=== PATIENT | male | born 1970 | race Caucasian/White ===

== ENCOUNTER 2016-09-11 15:42 | Emergency (ER) | payer OTHER ==
[~2016-09-11] VITALS: Ht 172.7 cm; Wt 110.0 kg
[2016-09-11 15:46] VITALS: Ht 172.7 cm; Wt 110.0 kg
[2016-09-11] MEDS ORDERED: ASPIRIN 325 MG TAB PO STA (17:38)
[2016-09-11] MEDS ORDERED: LIDOCAINE/MYLANTA 40 ML BTL PO ONE (18:00)
--- NOTE | 2016-09-11 18:01 | ERD ---
ER Documentation Chief Complaint Date/Time DATE: 09/11/16 TIME: 17:48 Chief Complaint chest pressure and sob x 2 months HPI This 45-year-old male presents for occasional intermittent chest pressure and shortness of breath. He was sent in by Dr. Lopez'carlos and his primary care physician. He states that he smokes marijuana for anxiety but does not smoke tobacco. He does not currently have the chest pain but he does have some epigastric pain. Chest pain is sometimes related to food and he wonders if it might be acid reflux. ROS All systems reviewed and are negative except as per history of present illness. Medications Home Meds Active Scripts Ranitidine Hcl* (Zantac*) 150 Mg Tablet, 150 MG PO BID Y for EPIGASTRIC PAIN, # 30 TAB Prov:SHANE ZAPATA DO 09/11/16 Discontinued Reported Medications [None] No Conflict Check 02/07/11 Allergies Allergies: Coded Allergies: No Known Allergies (Verified Allergy, Unknown, 09/11/16) PMhx/Soc History of Surgery: No (NO MEDICAL HISTORY, NO SURGERY) Hx Alcohol Use: Yes (OCC.) Hx Substance Use: No Hx Tobacco Use: No Physical Exam Vitals Vital Signs Date Time Temp Pulse Resp B/P Pulse Ox O2 Delivery O2 Flow Rate FiO2 09/11/16 17:55 98.0 66 18 145/90 100 Room Air 09/11/16 15:46 97.6 66 18 131/95 98 Physical Exam Const: [] No distress Head: Atraumatic Eyes: Normal Conjunctiva ENT: Normal External Ears, Nose and Mouth. Neck: Full range of motion..~ No meningismus. Resp: Clear to auscultation bilaterally Cardio: Regular rate and rhythm, no murmurs Abd: Soft, non tender, non distended. Normal bowel sounds Skin: No petechiae or rashes Back: No midline or flank tenderness Ext: No cyanosis, or edema Neur: Awake and alert and oriented 3, no focal deficits Psych: Normal Mood and Affect Result Diagram: 09/11/16 1800 09/11/16 1800 Results 24 hrs Laboratory Tests Test 09/11/16 18:00 White Blood Count 7.910^3/ul Red Blood Count 5.1810^6/ul Hemoglobin 15.1g/dl Hematocrit 45.6% Mean Corpuscular Volume 88.0fl Mean Corpuscular Hemoglobin 29.2pg Mean Corpuscular Hemoglobin Concent 33.1g/dl Red Cell Distribution Width 12.4% Platelet Count 87111^3/UL Mean Platelet Volume 11.3fl Neutrophils % 56.4% Lymphocytes % 34.0% Monocytes % 7.1% Eosinophils % 1.5% Basophils % 0.6% Nucleated Red Blood Cells % 0.0/100WBC Neutrophils # 4.510^3/ul Lymphocytes # 2.710^3/ul Monocytes # 0.610^3/ul Eosinophils # 0.110^3/ul Basophils # 0.110^3/ul Nucleated Red Blood Cells # 0.010^3/ul Prothrombin Time 12.5Sec Prothrombin Time Ratio 1.0 INR International Normalized Ratio 0.93 Activated Partial Thromboplast Time 28.0Sec Sodium Level 146mmol/L Potassium Level 3.7mmol/L Chloride Level 103mmol/L Carbon Dioxide Level 26mmol/L Anion Gap 21 Blood Urea Nitrogen 12mg/dl Creatinine 0.81mg/dl Glucose Level 94mg/dl Calcium Level 9.5mg/dl Troponin I < 0.012ng/ml B-Type Natriuretic Peptide 82PG/ML Current Medications Medications (Trade) Dose Ordered Sig/Cosme Route PRN Reason Start Time Stop Time Status Last Admin Dose Admin Aspirin (Aspirin) 325 mg ONCE STAT PO 09/11/16 17:38 09/11/16 17:39 DC 09/11/16 18:29 Miscellaneous Medication (Gi Cocktail (2)) 40 ml ONCE ONCE PO 09/11/16 18:00 09/11/16 18:01 DC 09/11/16 18:29 Procedures/MDM Atypical chest pain with no signs of acute cardiac ischemia. Some symptoms sound suspicious for gastroesophageal reflux disease. Patient was given an aspirin as well as a GI cocktail. After he received a GI cocktail some epigastric that he he had decreased. I have very low suspicion for pulmonary embolism or aortic dissection. We will discharge him with Zantac as well as primary care follow-up and instructions to obtain outpatient echocardiogram. EKG interpretation: Normal sinus rhythm rate of 71, normal axis, no ST or T- wave changes concerning for acute ischemia, normal intervals. Normal EKG. monitor and storage bin tender interpretation: Normal sinus rhythm without arrhythmia Chest x-ray interpretation: I see no acute process. I see no infiltrate, no pneumothorax, pulmonary edema, no fractures Departure Diagnosis: Primary Impression: Chest pain Additional Impression: SOB (shortness of breath) Condition: Stable SHANE ZAPATA DO Sep 11, 2016 18:01
[2016-09-11 18:26] LABS: BASOPHIL # 0.1 10^3/ul (0.0-0.1); BASOPHILS % 0.6 % (0.0-2.0); EOSINOPHILS # 0.1 10^3/ul (0.0-0.5); EOSINOPHILS % 1.5 % (0.0-7.0); HEMATOCRIT 45.6 % (42.0-52.0); HEMOGLOBIN 15.1 g/dl (14.0-18.0); LYMPHOCYTES # 2.7 10^3/ul (0.8-2.9); MEAN CORPUSCULAR HEMOGLOBIN 29.2 pg (29.0-33.0); MEAN CORPUSCULAR HGB CONC 33.1 g/dl (32.0-37.0); MEAN PLATELET VOLUME 11.3 fl (7.4-10.4); MONOCYTE # 0.6 10^3/ul (0.3-0.9); MONOCYTES % 7.1 % (0.0-11.0); NEUTROPHIL # 4.5 10^3/ul (1.6-7.5); NEUTROPHILS % 56.4 % (39.0-77.0); PLATELET COUNT 197 10^3/UL (140-415); RED BLOOD COUNT 5.18 10^6/ul (4.70-6.10); RED CELL DISTRIBUTION WIDTH 12.4 % (11.5-14.5); WHITE BLOOD COUNT 7.9 10^3/ul (4.8-10.8)
--- NOTE | 2016-09-11 18:28 | RADRPT ---
PROCEDURE: Chest x-ray CLINICAL INDICATION: Chest pain TECHNIQUE: Chest single view COMPARISON: None FINDINGS: The heart is normal in size. The pulmonary vessels are normal in caliber. The lungs are clear. Th e costophrenic angles are sharp. The visualized bony thorax is unremarkable. IMPRESSION: No acute cardiopulmonary disease. RPTAT: HH .Darian Maldonado MD, Date Time Electronically viewed and signed by .Darian Maldonado MD, MD on 09/11/2016 18:27 .W/
[2016-09-11 18:43] LABS: INR 0.93; PROTIME 12.5 Sec (12.2-14.2)
[2016-09-11 18:46] LABS: ANION GAP 21 (8-16); BLOOD UREA NITROGEN 12 mg/dl (7-20); CALCIUM 9.5 mg/dl (8.4-10.2); CARBON DIOXIDE 26 mmol/L (21-31); CHLORIDE 103 mmol/L (97-110); CREATININE 0.81 mg/dl (0.61-1.24); GLUCOSE 94 mg/dl (70-220); POTASSIUM 3.7 mmol/L (3.5-5.1); SODIUM 146 mmol/L (135-144)
[2016-09-11 18:58] LABS: B-TYPE NATRIURETIC PEPTIDE 82 PG/ML (0-125)
[2016-09-11 19:00] LABS: TROPONIN-I < 0.012 ng/ml (0.00-0.12)
[2016-09-11] MEDS ORDERED: RANI150T9 PO (19:06)
[2016-09-11 19:26] VITALS: BP 146/104; PULSE 59; RESP 17; TEMP 98.2
== END 2016-09-11 19:25 | disposition home or self-care (01) ==
LOC: E/R 15:42
DX: R07.89 Other chest pain (principal); R06.02 Shortness of breath
CPT/HCPCS: 36415; 71010; 80048; 83880; 84484; 85025; 85610; 85730; 93005